=== PATIENT | female | born 1965 | race Caucasian/White ===

== ENCOUNTER 2017-05-12 18:29 | Emergency (ER) | payer MEDICARE ==
[~2017-05-12] VITALS: Ht 162.6 cm; Wt 63.2 kg
[~2017-05-12 18:29] MED LIST: APRISO0.375 GM PO; ASACOL HD800 MG PO; ATIVAN 0.50.5 MG/TAB PO; ATIVAN 1MG T1 MG/TAB PO; BACTRIM DS 8001 TAB PO; CEFTIN500 MG PO; COMBIVENT INH14.7 GM IH; DAZIDOX10 MG PO; DESYREL 100MG100 MG PO; DESYREL 50MG50 MG PO; DESYREL DIVIDO300 MG PO; DIABETA 5MG5 MG/TAB PO; DILAUDID 4MG TAB4 MG PO; EFFEXOR 75M75 MG/TAB PO; FLAGYL500 MG PO; K-DUR20 MEQ PO; K-TAB20 PO; LEVAQUIN 750MG750 M1 PO; LUNESTA2 MG PO; LYRICA 75MG CAP75 MG PO; MACROBID 1100 MG/CAP PO; PHENERGAN50 MG/SUPP RC; PREDNISONE10 MG PO; PRILOSEC 20MG20 MG PO; PROAIR HFA0.09 MG/AC IH; REGLAN 10MG10 MG/TAB PO; REGLAN 5MG T5 MG/TAB PO; REMERON 15M15 MG/TA1 PO; ROXICODONE 55 MG/TAB PO; SEROQUEL 1100 MG/TAB PO; SEROQUEL 2525 MG/TAB PO; SINGULAIR 110 MG/TAB PO; TRIAMCINOLONE0.5% TOP; ZOFRAN ODT4 MG PO
[2017-05-12 18:36] VITALS: TEMP 98.2
[2017-05-12] MEDS ORDERED: ENSURE PLUS 24240 ML (19:49)
[2017-05-12] MEDS ORDERED: ATIVAN 0.50.5 MG/TAB PO (19:51)
[2017-05-12] MEDS ORDERED: GLUCOTROL 5M5 MG/TAB PO (19:51)
[2017-05-12 20:26] LABS: COLLECTION METHOD CLEAN CATCH
[2017-05-12 20:31] LABS: BASO # 0.1 (0.0-0.2); BASO % 0.7 % (0.0-2.0); EOS # 0.3 (0.0-0.7); EOS % 2.6 % (0-4.0); GRAN # 6.5 (1.4-6.5); GRAN % 62.2 % (42.2-75.2); HEMATOCRIT 42.7 % (37.0-47.0); HEMOGLOBIN 14.5 g/dl (12.5-16.0); LYMPH % 28.4 % (20.0-51.0); MEAN CELL VOLUME 94 fl (80.0-100.0); MEAN CORPUSCULAR HEMOGLOBIN 32 pg (27.0-31.0); MEAN CORPUSCULAR HGB CONC 34 g/dl (33.0-37.0); MEAN PLATELET VOLUME 9.2 fl (7.4-10.4); MONO # 0.6 (0.1-0.6); MONO % 5.9 % (1.7-9.3); PLATELET COUNT 293 K/mm3 (130-400); RED BLOOD COUNT 4.56 M/mm3 (4.10-5.30); WHITE BLOOD COUNT 10.4 K/mm3 (4.8-10.8)
[2017-05-12 20:37] LABS: MUCOUS Present /lpf; PH 5 (5-8); SQUAMOUS EPITHELIAL 0-2 /hpf; URINE APPEARANCE Hazy; URINE BACTERIA Rare /hpf; URINE BILIRUBIN Negative (NEGATIVE); URINE BLOOD Negative (NEGATIVE); URINE COLOR Yellow; URINE GLUCOSE Negative (NEGATIVE); URINE KETONE Negative (NEGATIVE); URINE LEUKOCYTE ESTERASE Negative (NEGATIVE); URINE PROTEIN(semi-quant) Negative (NEGATIVE); URINE RBC 0-2 /hpf; URINE UROBILINOGEN Negative (NEGATIVE); URINE WBC 0-2 /hpf
[2017-05-12 20:44] LABS: ADJUSTED CALCIUM 9.7 mg/dL (8.4-10.2); ALANINE AMINOTRANSFERASE 19 U/L (9-52); ALBUMIN 4.1 gm/dL (3.5-5.0); ALKALINE PHOSPHATASE 72 U/L (50-136); ANION GAP 11 mmol/L (7-16); BILIRUBIN,TOTAL 0.6 mg/dL (0.0-1.0); BLOOD UREA NITROGEN 7 mg/dL (7-17); CALCIUM 9.8 mg/dL (8.4-10.2); CARBON DIOXIDE 25 mmol/L (22-30); CHLORIDE 106 mmol/L (98-107); CREATININE, serum 0.73 mg/dL (0.52-1.25); GLUCOSE 101 mg/dL (74-106); POTASSIUM 3.9 mmol/L (3.4-5.0); SODIUM 141 mmol/L (137-145); TOTAL PROTEIN 7.1 gm/dL (6.4-8.2)
[2017-05-12 21:00] LABS: LIPASE 125 U/L (23-300)
[2017-05-12 21:02] LABS: C-REACTIVE PROTEIN < 0.5 mg/dL (0.0-0.9)
[2017-05-12] MEDS ORDERED: TRIAM OI 0.1 80 TOP (21:59)
[2017-05-12 22:09] VITALS: BP 138/91; PULSE 92
== END 2017-05-12 22:19 | disposition home or self-care (01) ==
LOC: COL.ER 18:29
PROVIDERS: Emergency Medicine
DX: R10.84 Generalized abdominal pain (principal); R11.2 Nausea with vomiting, unspecified; R19.7 Diarrhea, unspecified; E11.9 Type 2 diabetes mellitus without complications; R21 Rash and other nonspecific skin eruption; Z85.028 Personal history of other malignant neoplasm of stomach; Z79.84 Long term (current) use of oral hypoglycemic drugs
CPT/HCPCS: J1170; J2405; J7030

== ENCOUNTER 2017-05-23 18:35 | Emergency (ER) | payer MEDICARE ==
[~2017-05-23] VITALS: Ht 162.6 cm; Wt 63.2 kg
[~2017-05-23 18:35] MED LIST changes: +ENSURE PLUS 24240 ML; +GLUCOTROL 5M5 MG/TAB PO; +TRIAM OI 0.1 80 TOP
[2017-05-23 18:43] VITALS: TEMP 98.9
[2017-05-23 20:18] LABS: BASO # 0.1 (0.0-0.2); BASO % 0.9 % (0.0-2.0); EOS # 0.4 (0.0-0.7); EOS % 3.7 % (0-4.0); GRAN # 5.1 (1.4-6.5); GRAN % 54.7 % (42.2-75.2); HEMATOCRIT 42.3 % (37.0-47.0); HEMOGLOBIN 14.7 g/dl (12.5-16.0); LYMPH # 3.2 (1.2-3.4); LYMPH % 33.8 % (20.0-51.0); MEAN CELL VOLUME 92 fl (80.0-100.0); MEAN CORPUSCULAR HEMOGLOBIN 32 pg (27.0-31.0); MEAN CORPUSCULAR HGB CONC 35 g/dl (33.0-37.0); MONO # 0.6 (0.1-0.6); MONO % 6.7 % (1.7-9.3); PLATELET COUNT 263 K/mm3 (130-400); RED BLOOD COUNT 4.58 M/mm3 (4.10-5.30); WHITE BLOOD COUNT 9.4 K/mm3 (4.8-10.8)
[2017-05-23 20:30] LABS: ADJUSTED CALCIUM 9.4 mg/dL (8.4-10.2); ALANINE AMINOTRANSFERASE 27 U/L (9-52); ALBUMIN 4.2 gm/dL (3.5-5.0); ALKALINE PHOSPHATASE 64 U/L (50-136); ANION GAP 8 mmol/L (7-16); BILIRUBIN,TOTAL 0.7 mg/dL (0.0-1.0); BLOOD UREA NITROGEN 8 mg/dL (7-17); C-REACTIVE PROTEIN < 0.5 mg/dL (0.0-0.9); CALCIUM 9.6 mg/dL (8.4-10.2); CARBON DIOXIDE 25 mmol/L (22-30); CHLORIDE 106 mmol/L (98-107); CREATININE, serum 0.72 mg/dL (0.52-1.25); GLUCOSE 98 mg/dL (74-106); LIPASE 119 U/L (23-300); POTASSIUM 3.8 mmol/L (3.4-5.0); SODIUM 139 mmol/L (137-145); TOTAL PROTEIN 6.9 gm/dL (6.4-8.2)
[2017-05-23 20:33] LABS: COLLECTION METHOD CLEAN CATCH
[2017-05-23 20:53] LABS: MUCOUS Present /lpf; PH 5 (5-8); SQUAMOUS EPITHELIAL 0-2 /hpf; URINE APPEARANCE Hazy; URINE BACTERIA Rare /hpf; URINE BILIRUBIN Negative (NEGATIVE); URINE BLOOD Negative (NEGATIVE); URINE COLOR Yellow; URINE GLUCOSE Negative (NEGATIVE); URINE KETONE Trace (NEGATIVE); URINE LEUKOCYTE ESTERASE Negative (NEGATIVE); URINE PROTEIN(semi-quant) Negative (NEGATIVE); URINE RBC 0-2 /hpf; URINE UROBILINOGEN Negative (NEGATIVE)
[2017-05-23] MEDS ORDERED: ZOFRAN ODT4 MG PO (21:47)
[2017-05-23 22:22] VITALS: BP 145/72; PULSE 80
== END 2017-05-23 22:22 | disposition home or self-care (01) ==
LOC: COL.ER 18:35
PROVIDERS: Nurse Practitioner
DX: R10.11 Right upper quadrant pain (principal); R10.31 Right lower quadrant pain; E11.9 Type 2 diabetes mellitus without complications; J45.909 Unspecified asthma, uncomplicated; F32.9 Major depressive disorder, single episode, unspecified; F41.9 Anxiety disorder, unspecified; K58.0 Irritable bowel syndrome with diarrhea; F17.210 Nicotine dependence, cigarettes, uncomplicated; Z87.39 Personal history of other diseases of the musculoskeletal system and connective tissue; Z85.028 Personal history of other malignant neoplasm of stomach; Z79.84 Long term (current) use of oral hypoglycemic drugs; Z90.710 Acquired absence of both cervix and uterus; Z98.51 Tubal ligation status; Z90.49 Acquired absence of other specified parts of digestive tract; Z98.890 Other specified postprocedural states
CPT/HCPCS: J1170; J2405; J7030

== ENCOUNTER 2021-07-27 12:26 | Emergency (ER) | payer OTHER ==
[~2021-07-27] VITALS: Ht 167.6 cm; Wt 79.5 kg
[2021-07-27 12:53] VITALS: TEMP 98.2
[2021-07-27] MEDS ORDERED: LYRICA 75MG CAP75 MG PO (13:46)
[2021-07-27 13:55] VITALS: BP 176/88; PULSE 93
== END 2021-07-27 13:55 | disposition home or self-care (01) ==
LOC: COL.ER 12:26
DX: E11.40 Type 2 diabetes mellitus with diabetic neuropathy, unspecified (principal); F17.210 Nicotine dependence, cigarettes, uncomplicated; Z90.710 Acquired absence of both cervix and uterus; Z90.49 Acquired absence of other specified parts of digestive tract; Z79.84 Long term (current) use of oral hypoglycemic drugs

== ENCOUNTER 2021-09-26 17:09 | Emergency (ER) | payer MEDICARE ==
[~2021-09-26] VITALS: Ht 162.6 cm; Wt 72.7 kg
[2021-09-26 17:26] VITALS: TEMP 98
[2021-09-26] MEDS ORDERED: NORCO 325 MG-51 TAB PO (17:53)
[2021-09-26 18:11] VITALS: BP 153/106; PULSE 76
== END 2021-09-26 18:10 | disposition home or self-care (01) ==
LOC: COL.ER 17:09
DX: M25.552 Pain in left hip (principal); M25.551 Pain in right hip; E11.40 Type 2 diabetes mellitus with diabetic neuropathy, unspecified; Z91.040 Latex allergy status